=== PATIENT | female | born 1940 | race Caucasian/White ===

== ENCOUNTER 2020-09-27 16:42 | Inpatient (IN) | payer OTHER ==
[~2020-09-27] VITALS: Ht 165.1 cm; Wt 93.4 kg
[~2020-09-27 16:42] MED LIST: ADULT LOW DOSE81 MG PO; ALPRAZOLAM 0.50.5 M1 PO; AMBIEN 10 MG TA10 MG PO; AMLODIPINE BESYL5 MG PO; ASPIRIN325 PO; ASPIRIN81 M2 PO; ATORVASTATIN CA10 MG PO; BENADRYL25 MG PO; BRILINTA90 MG PO; CARVEDILOL25 MG PO; CIPRO500 MG PO; COUMADIN5 MG PO; COZAAR 50 MG TA50 M1 PO; COZAAR 50 MG TA50 M2 PO; COZAAR 50 MG TA50 MG PO; CYMBALTA60 MG PO; EYE VITAMIN-MI1 EACH PO; FISH OIL 1,0001 EAC5 PO; HYDROCODON-ACE1 EAC7 PO; IBUPROFEN 200200 M1 PO; IBUPROFEN 400400 M2 PO; LEVAQUIN 250 M250 MG PO; LEVAQUIN 750 M750 MG PO; LEVOXYL75 MCG PO; LIPITOR 10 MG10 M1 PO; LOPRESSOR 50 MG50 M1 PO; LOPRESSOR25 PO; LUTEIN6 M1 PO; MULTIVITAMINS PO; OXYCODONE-APAP1 EAC4 PO; PREDNISONE 20 M20 MG; PREMARIN0.45 MG PO; SENOKOT-S1 TA1 PO; STOOL SOFTENER50 MG PO; SYNTHROID75 MCG PO; TYLENOL325 MG PO; VITAMIN B-12100 MC1 PO; WELLBUTRIN XL300 MG PO; XANAX 0.5 MG0.5 M1 PO; ZOCOR 20 MG TAB20 M1 PO
[2020-09-27 16:47] VITALS: BP 168/65
--- NOTE | 2020-09-27 19:02 | NUR ---
CHEST TUBE INSERTED BY DR MCKEON USING STERILE TECHNIQUE. ATTACHED TO [facility]
[2020-09-27 19:35] LABS: HEMATOCRIT 44.1 % (37.0-47.0); HEMOGLOBIN 14.3 gm/dL (12.0-15.0); MCH 29.6 pg (26.0-34.0); MCHC 32.4 g/dL (28.0-37.0); MCV 91.5 fL (80.0-100.0); RBC 4.82 mil/uL (4.20-5.00); RDW 14.2 % (10.5-14.5); WBC 10.4 thou/uL (4.0-11.0)
[2020-09-27 19:36] LABS: CALCIUM 9.3 mg/dL (8.5-10.1); CREATININE 0.9 mg/dL (0.6-1.0)
[2020-09-27 19:42] LABS: POTASSIUM 4.1 mmol/L (3.5-5.1)
[2020-09-27 22:48] VITALS: BP 147/43
[2020-09-27 22:55] VITALS: BP 118/58
[2020-09-28 00:04] VITALS: BP 154/53
[2020-09-28 04:45] VITALS: BP 150/47
[2020-09-28 07:40] VITALS: BP 155/47
--- NOTE | 2020-09-28 10:06 | NUR ---
PT.S CHEST TUBE POST XRAY HAS MOVED OUT OF THORACIC AREA TO [place]ILLA. NEW MESSAGE RECEIVED TO REMOVE ANY SUCTION TUBING OR MEASURE NOW AT THIS TIME PER DR. MCKEON. PT/ C/O SHARP TRANSIENT DISCOMFORT AT SITE ONLY WIH MOVEMWENT AND DISAPPEARS QUICKLY. VERY PLEASANT 0VERAL DEMEANOR, CALM AND EASY TO WRK WITH. DISCUSSED VOIDING POSSIBLE UTI?- URINE HAS STRONG, FOUL ODOR WILL PASS ONTO MD THIS AM DOES NOT HAVE ANTIBIOTIC COVERAGE ON HER MED LIST AT PRESENT. NSR, DENIES ANY SOB ON 2L NC AT THIS TIME.
[2020-09-28 11:05] VITALS: BP 130/47
[2020-09-28 12:56] LABS: URINE BILIRUBIN NEGATIVE (Negative); URINE BLOOD NEGATIVE (Negative); URINE CLARITY SL CLOUDY; URINE COLOR YELLOW; URINE GLUCOSE-RANDOM* NEGATIVE (Negative); URINE KETONES NEGATIVE (Negative); URINE LEUKOCYTES TRACE (Negative); URINE NITRITE POSITIVE (Negative); URINE PROTEIN (DIPSTICK) NEGATIVE (Negative); URINE UROBILINOGEN 0.2 E.U./dl (0.2-1.0)
[2020-09-28 13:43] LABS: BACTERIA >30 Many /HPF (None Seen); CASTS None Seen /LPF (None Seen); CRYSTALS None Seen /LPF (None Seen); SQUAMOUS 4-10 Moderate /LPF (0-3); URINE WBC 6-15 Few /HPF (0-5); WBC CLUMPS Few (None Seen)
[2020-09-28 14:14] LABS: URINE RBC None Seen /HPF (0-2)
--- NOTE | 2020-09-28 14:25 | NUR ---
PT. UP IN CHAIR EARLIER AND NOW BACK IN BED. IVF HAVE BEEN DISCONTINUED. CHEST TUBE IS OFF ANY SUCTION STILL.
[2020-09-28 19:50] VITALS: BP 148/69
[2020-09-28 23:58] VITALS: BP 115/56
[2020-09-29] VITALS (10 sets, daily range): BP systolic 121–159; BP diastolic 54–85
--- NOTE | 2020-09-29 04:25 | NUR ---
PT ALERT AND ORIENTED. CHEST TUBE SITE PAIN REPORTED. HYDROCODONE X 1. CHEST TUBE WATER SEALED. NO SOB, NO NAUSEA, VOMITING OR DIARREA. DENIES ANY CHEST PAIN. PT ANTICIPATES TO DC HOME SOON. WILL CONTINUE WITH POC
--- NOTE | 2020-09-29 12:34 | NUR ---
Case opened to follow for dc planning. Pt is a&ox4 and able to complete cm assessment. She lives indep in her home with her spouse. She reports that he has dementia so their dtr Perlita is caring for him while she is in the hospital. The pt notes that she has a cane and rwalker at home but only uses them outside the home. She has 4 steps to enter the home via the deck and everything is on the main level. Dtr Perlita lives close to them and helps with shopping and errands. She is the pt's dpoa and emergency contact if needed. Her pcp is Dr. Harshil Segura. She is being evaluated by therapy today as well as [facility] acute rehab. She indicates a hx of falls at home with this being the worst resulting in rib fx and pneumo. Chest tube dc'd by surgery today. Possible dc tomorrow. Acute rehab and HH discussed. The pt prefers dc home with HH and notes she had HH services per [facility] after open heart sx a few years ago. She would like to use them again. Pt advised of name change to [facility]. Dc town planner to fax referral to [facility]. Dtr here today as well to visit and both interested in [facility] info as well as the Sr Blue book. Will follow.
--- NOTE | 2020-09-29 12:59 | NUR ---
FAXED REFERRAL TO [facility]. SPOKE TO SANDY. SHE DID NOT SEE PATIENT RECEIVING PRIOR SERVICES. WILL CALL TO CONFIRM THAT THEY WILL PROVIDE HOME HEALTH SERVICES - NURSING, OT & PT. PROBABLE DISCHARGE TOMORROW. P [phone]; FAX [phone]
--- NOTE | 2020-09-29 13:26 | NUR ---
SPOKE WITH BRIAN FROM INTAKE AT [facility] THEY CAN ACCEPT [place].
--- NOTE | 2020-09-29 13:43 | NUR ---
HANDED OVER CARES TO [facility]
[2020-09-30 03:42] VITALS: BP 139/61
[2020-09-30 08:00] VITALS: BP 151/48
[2020-09-30 10:58] VITALS: BP 121/64
--- NOTE | 2020-09-30 10:59 | NUR ---
Case discussed with the care team. Pt improved and off o2. Plan for dc to home today with hh vs rehab. [facility] accept and the dc planner internship will fax her final orders to them this afternoon. Pt provided with the sr blue book for private duty resouces and [facility] options discussed. Dtr to provide transport home today.
[2020-09-30 11:46] VITALS: BP 117/44
--- NOTE | 2020-09-30 12:00 | NUR ---
PATIENT IS TOLERATING BEING ON ROOM AIR. NO SOB NOTED. WILL CONTINUE TO MONITOR,
[2020-09-30] MEDS ORDERED: KEFLEX500 M1 PO (13:08)
[2020-09-30 13:30] VITALS: BP 121/64
--- NOTE | 2020-09-30 13:45 | NUR ---
PT DISCHARGING TODAY TO HOME WITH [facility] FAXED DC ORDERS/SUMMARY SPOKE WITH SANDY IN INTAKE SHE RECEIVED ORDERS AND WILL ARRANGE VISITS WITH PT.
--- NOTE | 2020-09-30 13:50 | NUR ---
FAXED CLINICAL UPDATE TO [facility] OF [facility] SPOKE WITH BERONICA IN ADM SHE RECEIVED UPDATE AND POSS DC OVER WEEKEND.
--- NOTE | 2020-09-30 14:24 | NUR ---
PATIENT DISCHARGED TO HOME VIA W/C WITH PHONE AND BELONGINGS. PAIN CONTROLLED PATIENT LEFT AT 1420.
== END 2020-09-30 13:10 | disposition home health service (06) | DRG 199 ==
LOC: ER 16:42 → EROBS 18:20 → 2N 18:20
PROVIDERS: Internal Medicine; Nurse Practitioner Family; ADMIT Surgery; ATTEND Surgery
PROC: 0W9B30Z Drainage of Left Pleural Cavity with Drainage Device, Percutaneous Approach (ICD-10-PCS; principal; 2020-09-27)
DX: J93.9 Pneumothorax, unspecified (principal); J96.01 Acute respiratory failure with hypoxia; S22.32XA Fracture of one rib, left side, initial encounter for closed fracture; I42.9 Cardiomyopathy, unspecified; N39.0 Urinary tract infection, site not specified; I25.10 Atherosclerotic heart disease of native coronary artery without angina pectoris; I10 Essential (primary) hypertension; E78.5 Hyperlipidemia, unspecified; M19.90 Unspecified osteoarthritis, unspecified site; E03.9 Hypothyroidism, unspecified; F41.1 Generalized anxiety disorder; E66.9 Obesity, unspecified; Z95.2 Presence of prosthetic heart valve; Z90.49 Acquired absence of other specified parts of digestive tract; Z91.041 Radiographic dye allergy status; Z87.891 Personal history of nicotine dependence; Z79.82 Long term (current) use of aspirin; Z79.899 Other long term (current) drug therapy; Z68.34 Body mass index [BMI] 34.0-34.9, adult; W18.39XA Other fall on same level, initial encounter; Y93.89 Activity, other specified; Y92.89 Other specified places as the place of occurrence of the external cause; Y99.8 Other external cause status; R26.89 Other abnormalities of gait and mobility
CPT/HCPCS: 10081